=== PATIENT | female | born 1945 | race Hispanic/Latino ===

== ENCOUNTER 2017-07-22 17:24 | Emergency (ER) | payer MEDICARE ==
[2017-07-22 17:28] VITALS: BMI 27.4
[2017-07-22] MEDS ORDERED: Alum-Mag Hydrox-Simethicone Susp (30 mL) PO STA (17:50)
--- NOTE | 2017-07-22 17:54 | C.PDOC ---
History Of Present Illness <Rudy Wilkins - Last Filed: 07/22/17 18:58> <Nellie Lugo - Last Filed: 07/22/17 19:43> 72 y/o F c PMHx HTN, HLD, tremor p/w thoracic pain x 2 days. 2 days ago, patient states she tripped over a parking block. She denies LOC but did vomit twice. She now complains of pain on both sides of her thorax, mostly on the L lower chest. She denies abdominal pain, further vomiting, bleeding, shortness of breath, extremity pain. (Rudy Wilkins) <Rudy Wilkins - Last Filed: 07/22/17 18:58> <Nellie Lugo - Last Filed: 07/22/17 19:43> Time Seen by Provider: 07/22/17 17:39 Chief Complaint (Nursing): Chest Pain Past Medical History - Medical History PMH: Anxiety, Back Problems, Depression, Diabetes, HTN, Hypercholesterolemia, Hyperlipidemia Denies: HIV, Seizures, Sexually Transmitted Disease Surgical History: Family History: States: Unknown Family Hx - Social History Hx Tobacco Use: No Hx Alcohol Use: No Hx Substance Use: No - Immunization History Hx Tetanus Toxoid Vaccination: No Hx Influenza Vaccination: No Hx Pneumococcal Vaccination: No <Rudy Wilkins - Last Filed: 07/22/17 18:58> Review Of Systems Except As Marked, All Systems Reviewed And Found Negative. Constitutional: Negative for: Fever Respiratory: Negative for: Shortness of Breath <Rudy Wilkins - Last Filed: 07/22/17 18:58> Physical Exam <Rudy Wilkins - Last Filed: 07/22/17 18:58> <Nellie Lugo - Last Filed: 07/22/17 19:43> - Physical Exam Additional Physical Exam Comments: Constitutional: No acute distress. Head: Normocephalic. Atraumatic. Eyes: PERRL. ENT: Moist mucous membranes. Neck: Supple. No midline tenderness. Cardiovascular: Regular rate. Radial pulse 2+ bilaterally. Chest: No tenderness. Bilateral rib tenderness. Respiratory: Clear to auscultation bilaterally. GI: Soft. Nontender. Nondistended. Back: No CVA tenderness. No midline tenderness. Musculoskeletal: No tenderness or swelling of extremities. FROM x4. Pelvis stable. Skin: No rash. Left lower chest ecchymosis. Neurologic: Alert, no focal deficit. (Rudy Wilkins) ED Course And Treatment O2 Sat by Pulse Oximetry: 95 (on RA) Pulse Ox Interpretation: Normal <Rudy Wilkins - Last Filed: 07/22/17 18:58> Pulse Ox Interpretation: Normal Reevaluation Time: 19:41 Reassessment Condition: Improved <SapjeffValdi - Last Filed: 07/22/17 19:43> Medical Decision Making <Rudy Wilkins - Last Filed: 07/22/17 18:58> <SapiraValdi - Last Filed: 07/22/17 19:43> Medical Decision Making: Morphine for pain, patient also requested Maalox. Will send for imaging to rule out fracture, pneumothorax, hemothorax, intracranial hemorrhage. FINDINGS: HEMORRHAGE: No intracranial hemorrhage. BRAIN: Diffuse atrophy with prominence of the ventricles and sulci noted. No mass effect or edema. Right parietal encephalomalacia. 10 x 3 mm hypodensity in the region of the right basal ganglia consistent with chronic ischemia. Scattered white matter hypodensities, which are nonspecific, but often seen with chronic microvascular ischemic disease. Please note that MRI with diffusion imaging is more sensitive in the detection of acute ischemic event.Please note that MRI with diffusion imaging is more sensitive in the detection of acute ischemic event. VENTRICLES: No hydrocephalus. CALVARIUM: Unremarkable. PARANASAL SINUSES: Unremarkable as visualized. No significant inflammatory changes. MASTOID AIR CELLS: Unremarkable as visualized. No inflammatory changes. OTHER FINDINGS: Probable subluxation of the left temporomandibular joint. IMPRESSION: Right parietal encephalomalacia. 10 x 3 mm hypodensity in the region of the right basal ganglia consistent with chronic ischemia. Scattered nonspecific white matter changes. Generalized atrophy. Probable subluxation of the left temporomandibular joint. Correlate clinically. Pending CT Chest. Will sign out to ED night team. (Rudy Wilkins) Disposition - Disposition Disposition Time: 18:47 <Rudy Wilkins - Last Filed: 07/22/17 18:58> Counseled Patient/Family Regarding: Studies Performed, Diagnosis, Need For Followup, Rx Given <ParishValdi - Last Filed: 07/22/17 19:43> - Disposition Referrals: [facility] [Outside] Ambulatory Care Service [Outside] Disposition: HOME/ ROUTINE Condition: FAIR Additional Instructions: Please return if symptoms recur Prescriptions: traMADol [Ultram] 50 mg PO Q8H #12 tab Instructions: Costochondritis (ED), Contusion in Adults (DC) Forms: [employer] (Slovak) - Clinical Impression Clinical Impression: Rib injury, Chest wall contusion - Scribe Statement The provider has reviewed the documentation as recorded by the Scribe <Rudy Wilkins - Last Filed: 07/22/17 18:58> <Nellie Lugo - Last Filed: 07/22/17 19:43> - Scribe Statement Charity Patel All medical record entries made by the Scribe were at my direction and personally dictated by me. I have reviewed the chart and agree that the record accurately reflects my personal performance of the history, physical exam, medical decision making, and the department course for this patient. I have also personally directed, reviewed, and agree with the discharge instructions and disposition. (Rudy Wilkins)
[2017-07-22] MEDS ORDERED: Aluminum Hydroxide/Magnesium Hydroxide Susp (30 mL) ONE (18:03)
[2017-07-22] MEDS ORDERED: Morphine 4 MG/ML VIAL ONE (18:03)
--- NOTE | 2017-07-22 18:41 | CT ---
PROCEDURE: CT HEAD WITHOUT CONTRAST. HISTORY: fall, vomiting COMPARISON: Noncontrast head CT performed 08/18/14 TECHNIQUE: Axial computed tomography images were obtained through the head/brain without intravenous contrast. Radiation dose: Total exam DLP = 937.10 mGy-cm. This CT exam was performed using one or more of the following dose reduction techniques: Automated exposure control, adjustment of the mA and/or kV according to patient size, and/or use of iterative reconstruction technique. FINDINGS: HEMORRHAGE: No intracranial hemorrhage. BRAIN: Diffuse atrophy with prominence of the ventricles and sulci noted. No mass effect or edema. Right parietal encephalomalacia. 10 x 3 mm hypodensity in the region of the right basal ganglia consistent with chronic ischemia. Scattered white matter hypodensities, which are nonspecific, but often seen with chronic microvascular ischemic disease. Please note that MRI with diffusion imaging is more sensitive in the detection of acute ischemic event.Please note that MRI with diffusion imaging is more sensitive in the detection of acute ischemic event. VENTRICLES: No hydrocephalus. CALVARIUM: Unremarkable. PARANASAL SINUSES: Unremarkable as visualized. No significant inflammatory changes. MASTOID AIR CELLS: Unremarkable as visualized. No inflammatory changes. OTHER FINDINGS: Probable subluxation of the left temporomandibular joint. IMPRESSION: Right parietal encephalomalacia. 10 x 3 mm hypodensity in the region of the right basal ganglia consistent with chronic ischemia. Scattered nonspecific white matter changes. Generalized atrophy. Probable subluxation of the left temporomandibular joint. Correlate clinically.
--- NOTE | 2017-07-22 19:01 | CT ---
CT chest without IV contrast Indication: Fall, thoracic pain Technique: Contiguous axial images were obtained through the chest without intravenous contrast enhancement. Sagittal and coronal reconstructions were generated and reviewed. This CT exam was performed using 1 or more of the falling dose reduction techniques: Automated exposure control, adjustment of the MAA and/or kV according to patient size, and/or use of iterative reconstruction technique. Radiation dose (DLP): 806.29 MGy-cm. Comparison: Chest x-ray performed 07/22/16 Findings: Visualized portions of the inferior thyroid gland appear unremarkable. The the unenhanced mediastinal and hilar vascular structures appear grossly unremarkable. The heart appears within normal limits of size. No focal consolidation. No pleural effusion. No pneumothorax. No suspicious pulmonary nodules measuring greater than 5 mm. Moderate to large hiatal hernia. Limited visualization of the noncontrast upper abdomen demonstrates 3.4 x 2.9 cm parapelvic cyst. Partially imaged deformity of the right iliac bone. Kyphosis. Multilevel degenerative changes. Impression: No acute displaced fracture identified. Partially imaged deformity of the right iliac bone. Considerations include remote fracture deformity however bone lesion cannot be excluded. Correlate clinically. Consider dedicated imaging and horn nuclear medicine bone scan if indicated. Moderate to large hiatal hernia. Additional findings as above.
[2017-07-22 20:06] VITALS: BP 151/83; PULSE 74; RESP 18; TEMP 98.1; O2SAT 94
--- NOTE | 2017-07-23 12:30 | CARD ---
APPROVED REPORT EKG Measurement Heart [id number] [id number] <Conclusion> Normal sinus rhythm Left axis deviation Abnormal ECG
== END 2017-07-22 20:06 | disposition home or self-care (01) ==
LOC: C.ER 17:24
DX: S20.212A Contusion of left front wall of thorax, initial encounter (principal); W01.0XXA Fall on same level from slipping, tripping and stumbling without subsequent striking against object, initial encounter
CPT/HCPCS: 70450; 71250; 93005; 96372; 99285; J2270

== ENCOUNTER 2017-12-29 07:19 | Emergency (ER) | payer MEDICARE ==
[2017-12-29 07:20] VITALS: BMI 29.2
[2017-12-29 07:58] VITALS: TEMP 98.6; O2SAT 96
--- NOTE | 2017-12-29 09:29 | C.PDOC ---
History Of Present Illness 72-year-old female, PMHx includes Parkinsons disease, presents to the emergency department with complaints of headache and pain to left side of body. Patient states she was walking down the stairs this morning when she tripped & fell forward, hitting her head and left side of body on the stairs/floor. Patient is complaining of left sided rib and knee pain. She also is complaining of mild dizziness/light headedness. Patient denies LOC, sensory changes, visual changes , nausea/vomiting, chest pain, shortness of breath, abdominal pain. - HPI Time Seen by Provider: 12/29/17 07:48 Chief Complaint (Nursing): Trauma History Per: Patient History/Exam Limitations: no limitations Onset/Duration Of Symptoms: Hrs Severity: Mild Past Medical History Reviewed: Historical Data, Nursing Documentation, Vital Signs Vital Signs: Last Vital Signs Temp 98.6 F 12/29/17 07:45 Pulse 82 12/29/17 09:56 Resp 16 12/29/17 09:56 BP 104/64 12/29/17 09:56 Pulse Ox 96 12/29/17 09:56 - Medical History PMH: Anxiety, Back Problems, Depression, Diabetes, HTN, Hypercholesterolemia, Hyperlipidemia Surgical History: - [facility] Procedures CLOSED BIOPSY OF SKIN AND SUBCUTANEOUS TISSUE (12/04/14) INJECT/INFUSE NEC (11/24/05) Family History: States: No Known Family Hx - Social History Hx Tobacco Use: No Hx Alcohol Use: No Hx Substance Use: No - Immunization History Hx Tetanus Toxoid Vaccination: No Hx Influenza Vaccination: No Hx Pneumococcal Vaccination: No Review Of Systems Except As Marked, All Systems Reviewed And Found Negative. Cardiovascular: Positive for: Chest Pain (left ribs). Negative for: Palpitations Respiratory: Negative for: Cough, Shortness of Breath Gastrointestinal: Negative for: Vomiting, Abdominal Pain, Diarrhea Musculoskeletal: Positive for: Other (knee pain, left). Negative for: Neck Pain Skin: Negative for: Rash Neurological: Positive for: Headache. Negative for: Weakness, Numbness, Altered Mental Status Physical Exam - Physical Exam Appears: Well, Non-toxic, No Acute Distress Skin: Warm, Dry, No Rash Head: Atraumatic, Normacephalic Eye(s): bilateral: Normal Inspection, PERRL, EOMI Nose: Normal, No Deformity, No Tenderness Oral Mucosa: Moist Neck: Normal, Normal ROM, No Midline Cervical Tenderness, No Paracervical Tenderness, No Step Off Deformity, Supple Chest: Other (left lateral rib TTP at approx ribs 5-6 level) Cardiovascular: Rhythm Regular Respiratory: Normal Breath Sounds, No Rales, No Rhonchi, No Wheezing Gastrointestinal/Abdominal: Normal Exam, Bowel Sounds, Soft, No Tenderness Extremity: Normal ROM, No Tenderness, No Deformity, No Swelling, Other ( echymosis to left proximal tibial area) Neurological/Psych: Oriented x3 ED Course And Treatment O2 Sat by Pulse Oximetry: 96 (RA) Pulse Ox Interpretation: Normal Progress Note: Xrays of B/L knees and Chest/rib series ordered and reviewed. Patient given PO tylenol. Reevaluation Time: 09:50 Reassessment Condition: Improved (On reassessment, patient is resting comfortably and states pain has improved. Xrays negative for acute bony injury. Patient reassured and instructed to follow up with PMD in 1-2 days. She understands she should return to ED if symptoms worsen.) Disposition Counseled Patient/Family Regarding: Diagnosis, Need For Followup, Rx Given - Disposition Referrals: Isauro Scanlon III, MD [Staff Provider] - Bert Matias MD [Medical Doctor] - Disposition: HOME/ ROUTINE Disposition Time: 09:55 Condition: STABLE Additional Instructions: FOLLOW UP WITH YOUR DOCTOR IN 1-2 DAYS IF PAIN PERSISTS, FOLLOW UP WITH ORTHOPEDICS WITHIN 1 WEEK RETURN TO ER IF SYMPTOMS WORSEN Prescriptions: Acetaminophen [Tylenol 325mg tab] 650 mg PO Q6 PRN #30 tab PRN Reason: pain/fever Instructions: Knee Sprain (ED), Rib Contusion (ED) Forms: [employer] (Israeli) Print Language: PUERTO RICAN - POA Present On Arrival: Falls Or Trauma - Clinical Impression Clinical Impression: Knee sprain, Contusion of rib on left side - Scribe Statement The provider has reviewed the documentation as recorded by the Scribe (Ben Don) All medical record entries made by the Scribe were at my direction and personally dictated by me. I have reviewed the chart and agree that the record accurately reflects my personal performance of the history, physical exam, medical decision making, and the department course for this patient. I have also personally directed, reviewed, and agree with the discharge instructions and disposition.
--- NOTE | 2017-12-29 09:51 | RAD ---
PROCEDURE: Radiographs of the chest and bilateral ribs HISTORY: B/L rib pain after fall COMPARISON: CT chest dated 07/22/2017 TECHNIQUE: Frontal radiograph of the chest and multiple oblique radiographs of the bilateral ribs were obtained. FINDINGS: RIGHT RIBS: No fracture or focal lesion visualized. LEFT RIBS: No fracture or focal lesion visualized. LUNGS: Clear. PLEURA: Stable mild elevation of the right hemidiaphragm. No pneumothorax or pleural fluid. CARDIOVASCULAR: Atherosclerotic aortic calcifications. Cardiomediastinal silhouette within normal limits. OTHER FINDINGS: None. IMPRESSION: Unremarkable radiographs of the chest and bilateral ribs. No rib fracture.
--- NOTE | 2017-12-29 09:52 | RAD ---
PROCEDURE: Bilateral Knee Radiographs. HISTORY: B/L knee pain after fall COMPARISON: None. FINDINGS: BONES: Right Knee: No acute fracture. Left Knee: No acute fracture. JOINTS: Right Knee: Tricompartmental narrowing with trace degenerative spurring. Left knee: Tricompartmental narrowing with trace degenerative spurring. SOFT TISSUES: Right Knee: Normal. Left Knee: Normal. JOINT EFFUSION: Right Knee: None. Left Knee: None. OTHER FINDINGS: Bilateral quadriceps tendon enthesophyte. IMPRESSION: No demonstrated fracture or dislocation. Mild degenerative changes.
[2017-12-29 09:56] VITALS: BP 104/64; PULSE 82; RESP 16
== END 2017-12-29 09:56 | disposition home or self-care (01) ==
LOC: C.ER 07:19
DX: S20.212A Contusion of left front wall of thorax, initial encounter (principal); S83.90XA Sprain of unspecified site of unspecified knee, initial encounter; W10.9XXA Fall (on) (from) unspecified stairs and steps, initial encounter; E11.9 Type 2 diabetes mellitus without complications; E78.00 Pure hypercholesterolemia, unspecified; I10 Essential (primary) hypertension; E78.5 Hyperlipidemia, unspecified; G20 Parkinson's disease

== ENCOUNTER 2018-09-28 10:23 | Observation (INO) | payer MEDICARE ==
[2018-09-28 10:24] VITALS: BMI 29.2
[2018-09-28] MEDS ORDERED: Azithromycin 500mg/250ML NS 500 MG/250 ML BAG IV STA (10:50)
[2018-09-28] MEDS ORDERED: cefTRIAXone IV 1 gm in Dextros 50 ML IV STA (10:50)
[2018-09-28] MEDS ORDERED: Sodium Chloride 0.9% 1,000 ML IV ONE (10:50)
--- NOTE | 2018-09-28 10:50 | C.PDOC ---
History Of Present Illness 73 year old female presents to the ED for evaluation of a productive cough, nasal congestion, fever (100.0), vomiting and headaches associated with generalized body weakness that began last night. Patient reports prior visit to PMD x2 weeks ago for similar symptoms who treated and prescribed her cough medication with improvement. She notes the symptoms returned after going outside without a coat. Received pneumonia vaccine. Denies flu vaccine, abdominal pain, chills, diarrhea, and any other associated symptoms. Time Seen by Provider: 09/28/18 10:29 History Per: Patient History/Exam Limitations: no limitations Onset/Duration Of Symptoms: Hrs Current Symptoms Are (Timing): Still Present Past Medical History Reviewed: Historical Data, Nursing Documentation, Vital Signs Vital Signs: Last Vital Signs Temp 100 F H 09/28/18 10:25 Pulse 94 H 09/28/18 10:25 Resp 19 09/28/18 10:40 BP 114/74 09/28/18 10:25 Pulse Ox 93 L 09/28/18 10:40 - Medical History PMH: Anxiety, Back Problems, Depression, Diabetes, HTN, Hypercholesterolemia, Hyperlipidemia Denies: HIV, Seizures, Sexually Transmitted Disease Surgical History: - [facility] Procedures CLOSED BIOPSY OF SKIN AND SUBCUTANEOUS TISSUE (12/04/14) INJECT/INFUSE NEC (11/24/05) Family History: States: Unknown Family Hx - Social History Hx Tobacco Use: No Hx Alcohol Use: No Hx Substance Use: No - Immunization History Hx Tetanus Toxoid Vaccination: No Hx Influenza Vaccination: No Hx Pneumococcal Vaccination: No Review Of Systems Except As Marked, All Systems Reviewed And Found Negative. Constitutional: Positive for: Fever (100.0), Other (generalized body weakness.). Negative for: Chills ENT: Positive for: Nose Congestion Respiratory: Positive for: Cough (productive.) Gastrointestinal: Positive for: Vomiting. Negative for: Abdominal Pain, Diarrhea Neurological: Positive for: Headache Physical Exam - Physical Exam Appears: Non-toxic, Other (generalized weakness.) Skin: Normal Color, Warm, Dry Head: Atraumatic, Normacephalic Eye(s): bilateral: Normal Inspection Nose: Normal, No Discharge Oral Mucosa: Moist Neck: Normal ROM, Supple Chest: Symmetrical, No Deformity Cardiovascular: Rhythm Regular, No Murmur Respiratory: Normal Breath Sounds, No Rales, No Rhonchi, No Wheezing, Other (NARD.) Extremity: Normal ROM (to the knees bilaterally. ), No Tenderness (to the knees bilaterally. ), Capillary Refill (less than 2 seconds. ), No Deformity, No Swelling (to the knees bilaterally. ) Neurological/Psych: Oriented x3, Normal Speech ED Course And Treatment - Laboratory Results Result Diagrams: 09/28/18 11:06 09/28/18 11:06 ECG: Interpreted By Me ECG Rhythm: Sinus Rhythm ECG Interpretation: Normal Rate From EC O2 Sat by Pulse Oximetry: 93 (nasal cannula) Pulse Ox Interpretation: Abnormal - Radiology CXR: Interpreted by Me CXR Interpretation: Yes: Infiltrates (?INTERSTIT) - Other Rad CXR X-Ray: Interpreted by Me, Viewed By Me, Read By Radiologist Interpretation: FINDINGS: LUNGS: There are low lung volumes. The lungs are well inflated and clear. PLEURA: No pneumothorax or pleural effusion. CARDIOVASCULAR: The heart is normal in size. No aortic atherosclerotic calcifications present. OSSEOUS STRUCTURES: Within normal limits for the patient's age. VISUALIZED UPPER ABDOMEN: Normal. OTHER FINDINGS: None. IMPRESSION: No acute findings. Progress - Re-Evaluation Re-evaluation Note: 09/28/18 12:03 NO ECHO REPORT IN PAST 2 YRS, UNK EF. WILL DEFER SEPSIS IV BOLUS PER PROTOCOL 09/28/18 12:34 D/W DR JERALD BARAJAS M[employer]ER WILL ADMIT - Data Reviewed Data Reviewed: Lab, Diagnostic imaging, EKG, Old records Medical Decision Making Medical Decision Making: Plan: -EKG -CXR -Nasal cannula -Blood sent -Blood culture -Urine culture -Urinalysis -Influenza A B -Tylenol -Toradol -Azithromycin -Ceftriaxone Disposition Counseled Patient/Family Regarding: Studies Performed, Diagnosis - Disposition Disposition: HOSPITALIZED Disposition Time: 12:34 Condition: SERIOUS - POA Present On Arrival: Poor Glycemic Control - Clinical Impression Clinical Impression: Pneumonia, Weakness generalized - Scribe Statement The provider has reviewed the documentation as recorded by the Scribe (Karuna Montes De Oca) Provider Attestation: All medical record entries made by the Scribe were at my direction and personally dictated by me. I have reviewed the chart and agree that the record accurately reflects my personal performance of the history, physical exam, medical decision making, and the department course for this patient. I have also personally directed, reviewed, and agree with the discharge instructions and disposition.
[2018-09-28] MEDS ORDERED: Sodium Chloride 0.9% 1,000 ML ONE (11:07)
[2018-09-28] MEDS ORDERED: cefTRIAXone 1 gm 0 GM/0 ML BAG IVPB ONE (11:09)
[2018-09-28 11:10] LABS: BASO # 0.2 K/uL (0.0-0.2); EOS # 0.1 K/uL (0.0-0.7); EOS % 0.4 % (0.0-4.0); LYMPH # 1.2 K/uL (1.0-4.3); MEAN CORPUSCULAR HEMOGLOBIN 25.5 pg (27.0-31.0); MEAN PLATELET VOLUME 7.7 fL (7.2-11.7); MONO # 0.7 K/uL (0.0-0.8); MONO % 3.5 % (0.0-10.0); NEUT # 17.3 K/uL (1.8-7.0); NEUT % 89.1 % (50.0-75.0); PLATELET COUNT 368 K/uL (130-400); RBC 3.84 Mil/uL (3.80-5.20); RED CELL DISTRIBUTION WIDTH 16.3 % (11.5-14.5)
[2018-09-28 11:23] LABS: HEMOGLOBIN 9.8 g/dL (11.0-16.0); MEAN CELL VOLUME 79.7 fL (81.0-99.0); WHITE BLOOD COUNT 19.4 K/uL (4.8-10.8)
[2018-09-28] MEDS ORDERED: cefTRIAXone 1 gm 1 GM/100 ML BAG IVPB ONE (11:26)
[2018-09-28 11:51] LABS: ANISOCYTOSIS SLIGHT; BANDS 4 % (0-2); LYMPHOCYTE 8 % (20-40); MONOCYTE 5 % (0-10); NEUTROPHIL 83 % (50-75); PLATELET ESTIMATE NORMAL (NORMAL); TOTAL CELLS COUNTED 100
[2018-09-28 11:52] LABS: HYPOCHROMIC SLIGHT
[2018-09-28] MEDS ORDERED: Azithromycin 500mg/250ML NS 500 MG/250 ML BAG IVPB ONE (11:52)
--- NOTE | 2018-09-28 11:53 | RAD ---
Date of service: 09/28/2018 PROCEDURE: CHEST RADIOGRAPH, 1 VIEW HISTORY: Pneumonia COMPARISON: CT chest without contrast from 07/22/2017. FINDINGS: LUNGS: There are low lung volumes. The lungs are well inflated and clear. PLEURA: No pneumothorax or pleural effusion. CARDIOVASCULAR: The heart is normal in size. No aortic atherosclerotic calcifications present. OSSEOUS STRUCTURES: Within normal limits for the patient's age. VISUALIZED UPPER ABDOMEN: Normal. OTHER FINDINGS: None. IMPRESSION: No acute findings.
[2018-09-28] MEDS ORDERED: Sodium Chloride 0.9% 500 ML IV ONE (12:03)
[2018-09-28 12:05] LABS: ALB/GLOB RATIO 1.2 (1.0-2.1); ALBUMIN 3.8 g/dL (3.5-5.0); BLOOD UREA NITROGEN 32 mg/dL (7-17); CALCIUM 9.4 mg/dl (8.6-10.4); GFR NON-AFRICAN AMERICAN 55
[2018-09-28 12:12] LABS: ALT/SGPT 14 U/L (9-52); AST/SGOT 55 U/L (14-36)
[2018-09-28 12:20] LABS: VENOUS BLOOD GAS BASE EXCESS -0.2 mmol/L (0.0-2.0); VENOUS BLOOD GAS PCO2 41 mmHg (40-60); VENOUS BLOOD GAS PO2 48 mm/Hg (30-55); VENOUS BLOOD PH 7.39 (7.32-7.43)
[2018-09-28 12:28] LABS: INR 1.1; PROTHROMBIN TIME 12.5 SECONDS (9.7-12.2)
--- NOTE | 2018-09-28 13:56 | CP.PCM.HP ---
History of Present Illness - History of Present Illness History of Present Illness: COMPREHENSIVE HISTORY & PHYSICAL EXAM HPI Patient is admitted from emergency room complaining of cough expectoration with evolving pneumonia. Patient for the last few days has been complaining of cough expectoration with upper respiratory congestion with loss of appetite. Patient was evaluated in the ER blood test shows WBC count of 19,000 and chest x-ray did not reveal any definite infiltrate. PAST HIST. History of hypertension and depression PERSONAL HIST: Smoking. N Alcohol. N Allergy N Travel_- . FAMILY HIST : ROS : Constitutional: Negative for weight change, chills, night sweats, fatigue and usage of assist device. Eyes: Negative for redness, swelling, itching, discharge, vision changes, blurry vision, double vision, glaucoma, cataracts, Ears: Negative for hearing loss, ringing, , tinnitus, vertigo Nose: Negative for rhinorrhea, stuffiness, sniffing, itching, postnasal drip, discoloration, nasal congestion and epistaxis. Throat: Negative for throat clearing, sore throat, hoarseness, difficulty swallowing and difficulty speaking. Respiratory: Negative, hemoptysis, snoring at night, Cardiovascular: Negative for chest pain, palpitations, orthopnea, PND, Edema of legs, leg cramps, angina, claudication, , irregular heartbeat, Neurology: Negative for irritability, muscle weakness, numbness and tingling, seizures, tremors, migraines, slurred speech, syncope, memory loss, mood changes, recurrent headaches Gastrointestinal: Negative for difficulty swallowing, diarrhea, constipation, black stools, rectal bleeding, nausea, flatulence, reflux, poor appetite, changes in bowel habits, abdominal pain Genitourinary: Negative for frequent urination, hematuria, discharge, incontinence, urinary retention, frequent UTI, Psychiatric: Negative for depression, anxiety/panic, suicidal tendencies, Musculoskeletal: Negative for swollen joints, back pain, , neck pain, morning stiffness of joints, . Skin: Negative for rash, ulcers, itching, dry skin and pigmented lesions. P/E: Constitutional: Appears stated age and in no apparent distress. Head: Normocephalic. Ears: External ear canals patent without inflammation. Tympanic membranes intact with normal light reflex and landmark. Eyes: Pupils are central, bilaterally equal, symmetrical and reacts to light with normal movements and no icterus or pallor. Nose: External nares are patent. Mucosa is pink Mouth-Throat: Good general appearance and condition. No post-pharyngeal/oropharyngeal erythema and tonsillar hypertrophy. Good dental hygiene. Neck-Lymphatic: Neck is supple with normal ROM, no thyromegaly, lymph nodes or masses. JVD is normal with no carotid bruit. Lungs: Clear to percussion and auscultation with bilateral normal air entry. Bilateral basal crackles Cardiovascular: S1 and S2 are normal with no murmurs, gallops and rub. GI Exam: No hepatomegaly. Abdomen is soft and non-tender. No Organomegaly , masses or hernias are evident and bowel sounds are normal and active. Neurology: Higher function and all cranial nerves intact, with no gross motor or sensory deficit. Superficial and deep reflexes are normal with downwards planters. No cerebellar deficit with normal gait. Musculoskeletal: No tender spots with normal curvature of the spine with no swelling or restricted ROM of the small and large joints. Extremities: Homans sign absent. Intact pulses with no pitting edema, calf tenderness or skin color changes. Skin: No rash, eruptions or abnormal skin pigmentation LAB/RADIOLOGY: ASSESMENT : Evolving pulmonary pneumonia with systemic inflammatory response. Hypertension PLAN: IV antibiotics and IV hydration. Present on Admission - Present on Admission Any Indicators Present on Admission: No Past Patient History - Past Medical History & Family History Past Medical History?: Yes - Past Social History Smoking Status: Never Smoked - CARDIAC Hx Hypercholesterolemia: Yes Hx Hypertension: Yes - NEUROLOGICAL Hx Seizures: No - ENDOCRINE/METABOLIC Hx Endocrine Disorders: Yes Hx Diabetes Mellitus Type 2: Yes - HEMATOLOGICAL/ONCOLOGICAL Hx Human Immunodeficiency Virus (HIV): No - MUSCULOSKELETAL/RHEUMATOLOGICAL Hx Musculoskeletal Disorders: Yes - GASTROINTESTINAL Hx Gastroesophageal Reflux: No - GENITOURINARY/GYNECOLOGICAL Hx Sexually Transmitted Disorders: No - PSYCHIATRIC Hx Anxiety: Yes Hx Depression: Yes Hx Substance Use: No - SURGICAL HISTORY Hx Surgeries: Yes Hx Cardiac Catheterization: Yes Hx Tubal Ligation: Yes - ANESTHESIA Hx Anesthesia: Yes Hx Anesthesia Reactions: No Hx Malignant Hyperthermia: No Meds Allergies/Adverse Reactions: Allergies Allergy/AdvReac Type Severity Reaction Status Date / Time No Known Allergies Allergy Verified 09/28/18 10:34 Results - Vital Signs Recent Vital Signs: Last Vital Signs Temp 98.9 F 09/28/18 13:44 Pulse 82 09/28/18 12:25 Resp 14 09/28/18 12:25 BP 110/56 L 09/28/18 12:25 Pulse Ox 93 L 09/28/18 13:16 - Labs Result Diagrams: 09/28/18 11:06 09/28/18 11:06 Labs: Laboratory Results - last 24 hr 09/28/18 09/28/18 09/28/18 11:06 11:06 11:06 WBC 19.4 H D RBC 3.84 Hgb 9.8 L D Hct 30.6 L MCV 79.7 L D MCH 25.5 L MCHC 32.0 L RDW 16.3 H Plt Count 368 MPV 7.7 Neut % (Auto) 89.1 H Lymph % (Auto) 6.0 L [place] % (Auto) 3.5 Eos % (Auto) 0.4 Baso % (Auto) 1.0 Neut # (Auto) 17.3 H Lymph # (Auto) 1.2 [place] # (Auto) 0.7 Eos # (Auto) 0.1 Baso # (Auto) 0.2 Neutrophils % (Manual) 83 H Band Neutrophils % 4 H Lymphocytes % (Manual) 8 L Monocytes % (Manual) 5 Platelet Estimate Normal Hypochromasia (manual) Slight Anisocytosis (manual) Slight PT INR APTT pO2 VBG pH VBG pCO2 VBG HCO3 VBG Total CO2 VBG O2 Sat (Calc) VBG Base Excess VBG Potassium Glucose Lactate Sodium 137 Potassium 4.6 Chloride 103 Carbon Dioxide 22 Anion Gap 15 BUN 32 H Creatinine 1.0 Est GFR ( Amer) > 60 Est GFR (Non-Af Amer) 55 Random Glucose 114 H Calcium 9.4 Total Bilirubin 0.6 AST 55 H ALT 14 Alkaline Phosphatase 54 Total Protein 6.9 Albumin 3.8 Globulin 3.1 Albumin/Globulin Ratio 1.2 Venous Blood Potassium Influenza Typ A,B (EIA) Negative for flu a/b 09/28/18 09/28/18 12:08 12:10 WBC RBC Hgb Hct MCV MCH MCHC RDW Plt Count MPV Neut % (Auto) Lymph % (Auto) [place] % (Auto) Eos % (Auto) Baso % (Auto) Neut # (Auto) Lymph # (Auto) [place] # (Auto) Eos # (Auto) Baso # (Auto) Neutrophils % (Manual) Band Neutrophils % Lymphocytes % (Manual) Monocytes % (Manual) Platelet Estimate Hypochromasia (manual) Anisocytosis (manual) PT 12.5 H INR 1.1 APTT 33 pO2 48 VBG pH 7.39 VBG pCO2 41 VBG HCO3 24.4 VBG Total CO2 26.1 VBG O2 Sat (Calc) 85.8 H VBG Base Excess -0.2 L VBG Potassium 3.9 Glucose 109 H Lactate 0.9 Sodium 136.0 Potassium Chloride 105.0 Carbon Dioxide Anion Gap BUN Creatinine Est GFR ( Amer) Est GFR (Non-Af Amer) Random Glucose Calcium Total Bilirubin AST ALT Alkaline Phosphatase Total Protein Albumin Globulin Albumin/Globulin Ratio Venous Blood Potassium 3.9 Influenza Typ A,B (EIA)
[2018-09-28 14:04] LABS: URINE BILIRUBIN NEGATIVE (NEGATIVE); URINE BLOOD NEGATIVE (NEGATIVE); URINE CLARITY Clear (Clear); URINE COLOR Straw (YELLOW); URINE GLUCOSE (UA) NORMAL (Normal); URINE LEUKOCYTE ESTERASE NEG Leu/uL (Negative); URINE PROTEIN NEGATIVE (NEGATIVE); URINE UROBILINOGEN NORMAL mg/dL (0.2-1.0)
[2018-09-28] MEDS: Sodium Chloride 0.45% 1,000 ML IV SCH (14:40)
--- NOTE | 2018-09-28 17:39 | RAD ---
PROCEDURE: Radiographs of the paranasal sinuses INDICATION: Sinusitis COMPARISON: None. FINDINGS: Upright Spence, Velez and lateral views of the paranasal sinuses were obtained. The right maxillary sinus is hypoplastic with severe osteopenia a neetu. The left maxillary sinus, sphenoid and the frontal sinuses are well aerated. The nasal septum is deviated to the right. IMPRESSION: Chronic right maxillary sinusitis. Nasal septum deviated to the right.
--- NOTE | 2018-09-28 17:41 | RAD ---
Date of service: For at the for the 09/28/2018 PROCEDURE: Left Knee Radiographs. HISTORY: Pain. COMPARISON: None. FINDINGS: BONES: Bone alignment is normal. There is periarticular bone demineralization. There is no acute displaced fracture or bone destruction. JOINTS: There is moderate tricompartmental degenerative osteoarthrosis with reduced joint spaces, marginal osteophytes and tibial spiking, worse in the media compartment. JOINT EFFUSION: There is a small suprapatellar joint effusion. OTHER FINDINGS: There are atherosclerotic vascular calcifications. IMPRESSION: No acute fracture or dislocation. Moderate tricompartmental degenerative osteoarthrosis, worse in the medial compartment. Small suprapatellar joint effusion.
[2018-09-29] MEDS: Sodium Chloride 0.45% 1,000 ML IV SCH ×2 (03:50→14:56)
[2018-09-29 07:32] LABS: HEMOGLOBIN 9.3 g/dL (11.0-16.0); MEAN CELL VOLUME 80.5 fL (81.0-99.0); MEAN CORPUSCULAR HEMOGLOBIN 25.9 pg (27.0-31.0); MEAN CORPUSCULAR HGB CONC 32.2 g/dL (33.0-37.0); RBC 3.58 Mil/uL (3.80-5.20); RED CELL DISTRIBUTION WIDTH 15.7 % (11.5-14.5)
[2018-09-29 07:33] LABS: BASO # 0.1 K/uL (0.0-0.2); BASO % 0.8 % (0.0-2.0); EOS # 0.3 K/uL (0.0-0.7); EOS % 3.1 % (0.0-4.0); MEAN PLATELET VOLUME 7.8 fL (7.2-11.7); MONO # 0.6 K/uL (0.0-0.8); MONO % 5.9 % (0.0-10.0); NEUT # 7.9 K/uL (1.8-7.0); NEUT % 72.2 % (50.0-75.0)
[2018-09-29 08:39] LABS: ALB/GLOB RATIO 1.2 (1.0-2.1); ALBUMIN 3.5 g/dL (3.5-5.0); ALT/SGPT 32 U/L (9-52); AST/SGOT 28 U/L (14-36); BLOOD UREA NITROGEN 21 mg/dL (7-17); CALCIUM 8.2 mg/dl (8.6-10.4); GFR NON-AFRICAN AMERICAN > 60
[2018-09-29] MEDS: Venlafaxine 150 mg ER Cap PO SCH (09:35)
--- NOTE | 2018-09-29 12:05 | CARD ---
APPROVED REPORT Date of service: 09/28/2018 EKG Measurement Heart [id number] <Conclusion> Normal sinus rhythm Left axis deviation Abnormal ECG
--- NOTE | 2018-09-29 13:56 | CP.PCM.PN ---
Subjective - Date & Time of Evaluation Date of Evaluation: 09/29/18 Time of Evaluation: 13:54 - Subjective Subjective: CHIEF COMPLAINTS TODAY : Upper respiratory tract congestion with mild cough. No fever ROS. HEENT : N. Resp : No ,pleuritic CP ,or hemoptysis Cardio : No anginal CP, PND, orthopnea, palpitation GI : No abd.pain, n/v ,diarrhea or GI bleeding . DRAFTER GEOPHYSICAL : No headache, vertigo, focal deficit. Musculoskel : No joint swelling , Derm : No rash Psych : Normal affect. Ext : No swelling ,calf pain PE. Pt. is alert awake in no distress. V.S As noted in the chart Head ,ear nose,throat and eyes : Normal. Neck : Supple with normal carotids. Lungs: Clear air entry. Heart : S1 & S2 normal with S4. No murmur. Abd : Soft non tender with normal bowel sounds. Neuro : Moves all ext. with no localized deficit. Ext : No edema with intact pulses.Non tender calves Derm : No rashes or decubitus ulcer. LABS/RADIOLOGY: X-ray of the sinus shows chronic sinusitis. X-ray of the left knee shows osteoarthritis with small effusion ASSESSMENT/PLAN : Continue IV antibiotics and pain management Objective - Vital Signs/Intake and Output Vital Signs (last 24 hours): Temp Pulse Resp BP Pulse Ox 98.4 F 74 20 118/66 96 09/29/18 07:00 09/29/18 07:00 09/29/18 07:00 09/29/18 07:00 09/29/18 07:00 Intake and Output: 09/29/18 09/29/18 11:59 23:59 Intake Total 840 Balance 840 - Medications Medications: Current Medications Amlodipine Besylate (Norvasc) 10 mg PO DAILY [facility] Last Admin: 09/29/18 09:34 Dose: 10 mg Clonazepam (Klonopin) 0.5 mg PO Q12H [facility] Last Admin: 09/29/18 07:42 Dose: 0.5 mg Heparin Sodium (Porcine) (Heparin) 5,000 units SC Q12 [facility] Last Admin: 09/29/18 09:34 Dose: 5,000 units Ceftriaxone Sodium 1 gm/ (Sodium Chloride) 100 mls @ 100 mls/hr IVPB Q24H [facility]; Protocol Last Admin: 09/29/18 10:46 Dose: 100 mls/hr Sodium Chloride (Sodium Chloride 0.45%) 1,000 mls @ 80 mls/hr IV .[id number] [facility] Last Admin: 09/29/18 03:50 Dose: Not Given Ibuprofen (Motrin Tab) 600 mg PO TID [facility] Last Admin: 09/29/18 13:46 Dose: 600 mg Rosuvastatin Calcium (Crestor) 5 mg PO HS [facility] Trazodone HCl (Desyrel) 300 mg PO HS [facility] Venlafaxine HCl (Effexor Xr) 150 mg PO DAILY [facility] Last Admin: 09/29/18 09:35 Dose: 150 mg - Labs Labs: 09/29/18 07:28 09/29/18 07:28 PT 12.5 SECONDS (9.7-12.2) H 09/28/18 12:08 INR 1.1 09/28/18 12:08 APTT 33 SECONDS (21-34) 09/28/18 12:08
[2018-09-30 00:04] VITALS: BP 129/77; PULSE 81; RESP 16; TEMP 97.9; O2SAT 98
[2018-09-30] MEDS: Sodium Chloride 0.45% 1,000 ML IV SCH ×2 (03:30→09:14)
[2018-09-30 06:51] LABS: BASO # 0.1 K/uL (0.0-0.2); BASO % 1.4 % (0.0-2.0); EOS # 0.5 K/uL (0.0-0.7); EOS % 5.8 % (0.0-4.0); LYMPH % 25.7 % (20.0-40.0); MEAN CELL VOLUME 79.8 fL (81.0-99.0); MEAN CORPUSCULAR HEMOGLOBIN 25.5 pg (27.0-31.0); MEAN PLATELET VOLUME 7.6 fL (7.2-11.7); MONO # 0.7 K/uL (0.0-0.8); MONO % 8.9 % (0.0-10.0); NEUT # 4.6 K/uL (1.8-7.0); NEUT % 58.2 % (50.0-75.0); RBC 3.93 Mil/uL (3.80-5.20); RED CELL DISTRIBUTION WIDTH 16.2 % (11.5-14.5); WHITE BLOOD COUNT 7.9 K/uL (4.8-10.8)
[2018-09-30 07:05] LABS: ALB/GLOB RATIO 1.3 (1.0-2.1); ALBUMIN 3.9 g/dL (3.5-5.0); ALT/SGPT 38 U/L (9-52); AST/SGOT 51 U/L (14-36); BLOOD UREA NITROGEN 16 mg/dL (7-17); CALCIUM 8.7 mg/dl (8.6-10.4); GFR NON-AFRICAN AMERICAN > 60
[2018-09-30] MEDS: Venlafaxine 150 mg ER Cap PO SCH (09:13)
--- NOTE | 2018-09-30 11:21 | CP.PCM.PN ---
Subjective - Date & Time of Evaluation Date of Evaluation: 09/30/18 Time of Evaluation: 11:30 Objective - Vital Signs/Intake and Output Vital Signs (last 24 hours): Temp Pulse Resp BP Pulse Ox 97.9 F 81 16 129/77 98 09/30/18 00:03 09/30/18 00:03 09/30/18 00:03 09/30/18 00:03 09/30/18 00:05 Intake and Output: 09/30/18 09/30/18 06:59 18:59 Intake Total 890 Balance 890 - Medications Medications: Current Medications Amlodipine Besylate (Norvasc) 10 mg PO DAILY [facility] Last Admin: 09/30/18 09:12 Dose: 10 mg Clonazepam (Klonopin) 0.5 mg PO Q12H [facility] Last Admin: 09/30/18 07:32 Dose: 0.5 mg Heparin Sodium (Porcine) (Heparin) 5,000 units SC Q12 [facility] Last Admin: 09/30/18 09:18 Dose: Not Given Ceftriaxone Sodium 1 gm/ (Sodium Chloride) 100 mls @ 100 mls/hr IVPB Q24H [facility]; Protocol Last Admin: 09/29/18 10:46 Dose: 100 mls/hr Sodium Chloride (Sodium Chloride 0.45%) 1,000 mls @ 80 mls/hr IV .[id number] [facility] Last Admin: 09/30/18 09:14 Dose: 80 mls/hr Ibuprofen (Motrin Tab) 600 mg PO TID [facility] Last Admin: 09/30/18 09:13 Dose: 600 mg Influenza Virus Vaccine (Fluzone Quad [id number]) 60 mcg IM .ONCE ONE Stop: 10/01/18 10:01 Rosuvastatin Calcium (Crestor) 5 mg PO HS [facility] Last Admin: 09/29/18 21:07 Dose: 5 mg Trazodone HCl (Desyrel) 300 mg PO HS [facility] Last Admin: 09/29/18 21:06 Dose: 300 mg Venlafaxine HCl (Effexor Xr) 150 mg PO DAILY [facility] Last Admin: 09/30/18 09:13 Dose: 150 mg - Labs Labs: 09/30/18 06:30 09/30/18 06:30 PT 12.5 SECONDS (9.7-12.2) H 09/28/18 12:08 INR 1.1 09/28/18 12:08 APTT 33 SECONDS (21-34) 09/28/18 12:08
--- NOTE | 2018-09-30 14:42 | CP.PCM.DIS ---
Provider - Provider Date of Admission: 09/28/18 12:35 Attending physician: Mariam Soares MD Time Spent in preparation of Discharge (in minutes): 36 Hospital Course - Lab Results Lab Results: Micro Results 09/28/18 11:44 Blood Blood Culture - Preliminary NO GROWTH AFTER 48 HOURS 09/28/18 11:06 Blood Blood Culture - Preliminary NO GROWTH AFTER 48 HOURS 09/28/18 13:54 Urine Urine Culture - Final No Growth (<1,000 CFU/ML) Most Recent Lab Values WBC 7.9 K/uL (4.8-10.8) 09/30/18 06:30 RBC 3.93 Mil/uL (3.80-5.20) 09/30/18 06:30 Hgb 10.0 g/dL (11.0-16.0) L 09/30/18 06:30 Hct 31.3 % (34.0-47.0) L 09/30/18 06:30 MCV 79.8 fL (81.0-99.0) L 09/30/18 06:30 MCH 25.5 pg (27.0-31.0) L 09/30/18 06:30 MCHC 32.0 g/dL (33.0-37.0) L 09/30/18 06:30 RDW 16.2 % (11.5-14.5) H 09/30/18 06:30 Plt Count 376 K/uL (130-400) 09/30/18 06:30 MPV 7.6 fL (7.2-11.7) 09/30/18 06:30 Neut % (Auto) 58.2 % (50.0-75.0) 09/30/18 06:30 Lymph % (Auto) 25.7 % (20.0-40.0) 09/30/18 06:30 [place] % (Auto) 8.9 % (0.0-10.0) 09/30/18 06:30 Eos % (Auto) 5.8 % (0.0-4.0) H 09/30/18 06:30 Baso % (Auto) 1.4 % (0.0-2.0) 09/30/18 06:30 Neut # (Auto) 4.6 K/uL (1.8-7.0) 09/30/18 06:30 Lymph # (Auto) 2.0 K/uL (1.0-4.3) 09/30/18 06:30 [place] # (Auto) 0.7 K/uL (0.0-0.8) 09/30/18 06:30 Eos # (Auto) 0.5 K/uL (0.0-0.7) 09/30/18 06:30 Baso # (Auto) 0.1 K/uL (0.0-0.2) 09/30/18 06:30 Neutrophils % (Manual) 83 % (50-75) H 09/28/18 11:06 Band Neutrophils % 4 % (0-2) H 09/28/18 11:06 Lymphocytes % (Manual) 8 % (20-40) L 09/28/18 11:06 Monocytes % (Manual) 5 % (0-10) 09/28/18 11:06 Platelet Estimate Normal (NORMAL) 09/28/18 11:06 Hypochromasia (manual) Slight 09/28/18 11:06 Anisocytosis (manual) Slight 09/28/18 11:06 PT 12.5 SECONDS (9.7-12.2) H 09/28/18 12:08 INR 1.1 09/28/18 12:08 APTT 33 SECONDS (21-34) 09/28/18 12:08 pO2 48 mm/Hg (30-55) 09/28/18 12:10 VBG pH 7.39 (7.32-7.43) 09/28/18 12:10 VBG pCO2 41 mmHg (40-60) 09/28/18 12:10 VBG HCO3 24.4 mmol/L 09/28/18 12:10 VBG Total CO2 26.1 mmol/L (22-28) 09/28/18 12:10 VBG O2 Sat (Calc) 85.8 % (40-65) H 09/28/18 12:10 VBG Base Excess -0.2 mmol/L (0.0-2.0) L 09/28/18 12:10 VBG Potassium 3.9 mmol/L (3.6-5.2) 09/28/18 12:10 Sodium 136.0 mmol/l (132-148) 09/28/18 12:10 Chloride 105.0 mmol/L (98-107) 09/28/18 12:10 Glucose 109 mg/dl (65-105) H 09/28/18 12:10 Lactate 0.9 mmol/L (0.7-2.1) 09/28/18 12:10 Sodium 141 mmol/L (132-148) 09/30/18 06:30 Potassium 4.4 mmol/L (3.6-5.2) 09/30/18 06:30 Chloride 107 mmol/L (98-107) 09/30/18 06:30 Carbon Dioxide 26 mmol/L (22-30) 09/30/18 06:30 Anion Gap 13 (10-20) 09/30/18 06:30 BUN 16 mg/dL (7-17) 09/30/18 06:30 Creatinine 0.8 mg/dL (0.7-1.2) 09/30/18 06:30 Est GFR ( Amer) > 60 09/30/18 06:30 Est GFR (Non-Af Amer) > 60 09/30/18 06:30 POC Glucose (mg/dL) 106 mg/dL (65-110) 09/29/18 21:41 Random Glucose 96 mg/dL (65-105) 09/30/18 06:30 Calcium 8.7 mg/dl (8.6-10.4) 09/30/18 06:30 Phosphorus 4.3 mg/dL (2.5-4.5) 09/28/18 14:08 Magnesium 1.7 mg/dL (1.6-2.3) 09/28/18 14:08 Total Bilirubin 0.3 mg/dL (0.2-1.3) 09/30/18 06:30 AST 51 U/L (14-36) H D 09/30/18 06:30 ALT 38 U/L (9-52) 09/30/18 06:30 Alkaline Phosphatase 98 U/L (38-126) 09/30/18 06:30 Total Protein 6.9 g/dL (6.3-8.3) 09/30/18 06:30 Albumin 3.9 g/dL (3.5-5.0) 09/30/18 06:30 Globulin 3.0 gm/dL (2.2-3.9) 09/30/18 06:30 Albumin/Globulin Ratio 1.3 (1.0-2.1) 09/30/18 06:30 Venous Blood Potassium 3.9 mmol/L (3.6-5.2) 09/28/18 12:10 Urine Color Straw (YELLOW) 09/28/18 13:54 Urine Clarity Clear (Clear) 09/28/18 13:54 Urine pH 6.0 (5.0-8.0) 09/28/18 13:54 Ur Specific [place] 1.004 (1.003-1.030) 09/28/18 13:54 Urine Protein Negative mg/dL (NEGATIVE) 09/28/18 13:54 Urine Glucose (UA) Normal mg/dL (Normal) 09/28/18 13:54 Urine Ketones Negative mg/dL (NEGATIVE) 09/28/18 13:54 Urine Blood Negative (NEGATIVE) 09/28/18 13:54 Urine Nitrate Negative (NEGATIVE) 09/28/18 13:54 Urine Bilirubin Negative (NEGATIVE) 09/28/18 13:54 Urine Urobilinogen Normal mg/dL (0.2-1.0) 09/28/18 13:54 Ur Leukocyte Esterase Neg Honey/uL (Negative) 09/28/18 13:54 Urine WBC (Auto) < 1 /hpf (0-5) 09/28/18 13:54 Influenza Typ A,B (EIA) Negative for flu a/b (NEGATIVE) 09/28/18 11:06 - Hospital Course Hospital Course: Patient is admitted from emergency room complaining of cough expectoration with evolving pneumonia. Patient for the last few days has been complaining of cough expectoration with upper respiratory congestion with loss of appetite. Patient was evaluated in the ER blood test shows WBC count of 19,000 and chest x-ray did not reveal any definite infiltrate. PAST HIST. History of hypertension and depression Patient was admitted on the floor. IV antibiotics and IV fluids were given with improvement of white cells count. Prior to discharge the white cell count was 7.9 thousand. CAT scan of the sinuses showed sinusitis. CT of the head was negative and the x-rays of the knee showed osteoarthritis patient improved on also on Motrin uric acids were normal Currently patient is discharged on Augmentin will be followed as an outpatient. Discharge Plan - Discharge Medications Prescriptions: Amoxicillin/Clavulanate [Augmentin 875 MG-125 MG] 1 tab PO Q12 #20 tab Lactobacillus Acidophilus [Bacid Acidophilus] 1 cap PO HS #10 cap - Follow Up Plan Condition: SERIOUS Disposition: HOME/ ROUTINE Instructions: Pneumonia, Adult (DC), Generalized Weakness (DC), Amoxicillin and Clavulanate, Lactobacillus, Weakness (ED) Additional Instructions: Please f/u with PMD in 1 week Please continue antibiotics for 10 days Please pick medication from [facility]
[2018-10-01] MEDS ORDERED: Influenza Vaccine 60 MCG/0.5 ML SYR (3 yr & up) IM ONE (10:00)
== END 2018-09-30 13:00 | disposition home or self-care (01) ==
LOC: C.ER 10:23 → C.3T 12:35
PROVIDERS: ADMIT Internal Medicine Cardiovascular Disease; ATTEND Internal Medicine Cardiovascular Disease
DX: J18.9 Pneumonia, unspecified organism (principal); I10 Essential (primary) hypertension; E11.9 Type 2 diabetes mellitus without complications; E78.00 Pure hypercholesterolemia, unspecified; M17.10 Unilateral primary osteoarthritis, unspecified knee; Z98.51 Tubal ligation status; Z23 Encounter for immunization; E78.5 Hyperlipidemia, unspecified
CPT/HCPCS: 36415; 70220; 71045; 73562; 80053; 81001; 82803; 82948; 83735; 84100; 85025; 85610; 85730; 87040; 87086; 87804; 93005; 97116; 97162; 97165; 97530; 99285; G0378; G8978; G8979; G8987; G8988; J0456; J0696; J1644; J1885; J7030; J7040

== ENCOUNTER 2019-04-11 08:45 | Emergency (ER) | payer MEDICARE ==
[2019-04-11 08:45] VITALS: BMI 29.2
[2019-04-11 08:56] VITALS: O2SAT 95
--- NOTE | 2019-04-11 09:30 | C.PDOC ---
History Of Present Illness 74 y/o female brought to ER by ambulance for evaluation of low back pain which has been present since yesterday.Patient states that she was wearing heels and she had slip and fall. Patient reports that she landed on her back.Denies having head injury,LOC, headache,dizziness, neck pain, CP,SOB, nausea, vomiting, and abdominal pain. Time Seen by Provider: 04/11/19 08:57 Chief Complaint (Nursing): Back Pain History Per: Patient History/Exam Limitations: no limitations Onset/Duration Of Symptoms: Days Current Symptoms Are (Timing): Still Present Severity: Moderate Past Medical History Reviewed: Historical Data, Nursing Documentation, Vital Signs Vital Signs: Last Vital Signs Temp 98.9 F 04/11/19 08:53 Pulse 79 04/11/19 08:53 Resp 20 04/11/19 08:53 BP 135/70 04/11/19 08:53 Pulse Ox 95 04/11/19 08:53 Primary Care Provider: FAMILY PROVIDER,NO - Medical History PMH: Anxiety, Back Problems, Depression, Diabetes, HTN, Hypercholesterolemia, Hyperlipidemia Denies: HIV, Seizures, Sexually Transmitted Disease Surgical History: Other Surgeries: Hx of surgeries - [facility] Procedures CLOSED BIOPSY OF SKIN AND SUBCUTANEOUS TISSUE (12/04/14) INJECT/INFUSE NEC (11/24/05) Family History: States: No Known Family Hx - Social History Hx Tobacco Use: No Hx Alcohol Use: No Hx Substance Use: No - Immunization History Hx Tetanus Toxoid Vaccination: No Hx Influenza Vaccination: No Hx Pneumococcal Vaccination: Yes Review Of Systems Except As Marked, All Systems Reviewed And Found Negative. Constitutional: Negative for: Fever, Chills Cardiovascular: Negative for: Chest Pain Respiratory: Negative for: Shortness of Breath Gastrointestinal: Negative for: Nausea, Vomiting Musculoskeletal: Positive for: Back Pain. Negative for: Neck Pain Physical Exam - Physical Exam Appears: Non-toxic, No Acute Distress, Other (comfortable) Skin: Normal Color, Warm, Dry Head: Atraumatic, Normacephalic Eye(s): bilateral: Normal Inspection Nose: Normal Oral Mucosa: Moist Neck: Supple Chest: Symmetrical Cardiovascular: Rhythm Regular Respiratory: Normal Breath Sounds, No Rales, No Rhonchi, No Wheezing Gastrointestinal/Abdominal: Normal Exam, Soft, No Tenderness, No Guarding, No Rebound Back: Other (lumbar tenderness( L1-L2)) Extremity: Normal ROM, Tenderness (sacral tenderness) Neurological/Psych: Oriented x3, Normal Speech, Normal Motor (legs), Normal Sensation (legs) ED Course And Treatment O2 Sat by Pulse Oximetry: 95 (RA) Pulse Ox Interpretation: Normal Progress Note: N-Cwt-Gutbpd Spine,I-Nwa-Buxhck and Coccyx,X-Ray-Hip/Pelvis, and CT-Pelvis ordered. Disposition Counseled Patient/Family Regarding: Studies Performed, Diagnosis, Need For Fol lowup, Rx Given - Disposition Referrals: [facility] [Outside] Nima Don MD [Staff Provider] - Disposition: HOME/ ROUTINE Disposition Time: 12:00 Condition: STABLE Additional Instructions: FOLLOW UP WITH YOUR DOCTOR/CLINIC IN 1-2 DAYS IF PAIN PERSISTS, FOLLOW UP WITH ORTHOPEDICS WITHIN 1 WEEK USE PAIN MEDICATIONS NEEDED RETURN TO ER IF SYMPTOMS WORSEN Prescriptions: Acetaminophen [Tylenol 325mg tab] 650 mg PO Q6 PRN #30 tab PRN Reason: pain/fever Ibuprofen [Motrin Tab] 600 mg PO Q6 PRN #30 tab PRN Reason: fever/pain Instructions: Low Back Pain (DC) Forms: Tagged (Danish) Print Language: LAO - Clinical Impression Clinical Impression: Lumbar back sprain, Contusion of back - Scribe Statement The provider has reviewed the documentation as recorded by the Judah Quintero Provider Attestation: All medical record entries made by the Catrachitaibjake were at my direction and personally dictated by me. I have reviewed the chart and agree that the record accurately reflects my personal performance of the history, physical exam, medical decision making, and the department course for this patient. I have also personally directed, reviewed, and agree with the discharge instructions and disposition.
--- NOTE | 2019-04-11 10:22 | RAD ---
PROCEDURE: Radiographs of the pelvis and bilateral hips HISTORY: HIP PAIN AFTER FALL COMPARISON: None. TECHNIQUE: 2 views obtained. FINDINGS: BONES: Pelvis: Deformity with fracture of the lateral aspect of the superior pubic ramus at the juncture with the acetabulum. The possibly acute versus chronic. There is fracture of the pubic symphysis with displacement of the superior pubic ramus relative to the symphysis. Again, possible acute versus old deformity. No other fracture identified. Right hip:Unremarkable. Left hip:Unremarkable. JOINTS: Right hip: Unremarkable. Left hip: Unremarkable. Sacroiliac Joints: Unremarkable. Pubic symphysis: As above. SOFT TISSUES: Normal. OTHER FINDINGS: None. IMPRESSION: Acute versus old fracture right superior pubic ramus laterally andAt the junction with the superior pubic ramus. Further evaluation with CT should be considered.
--- NOTE | 2019-04-11 10:23 | RAD ---
Date of service: 04/11/2019 PROCEDURE: Radiographs of the Sacrum and Coccyx HISTORY: low back/tailbone pain after fall COMPARISON: None available. TECHNIQUE: Frontal and lateral views of the sacrum and coccyx. 4 views obtained. FINDINGS: BONES: Sacrum and coccyx unremarkable. No fracture or focal lesion. SACROILIAC JOINTS: Unremarkable. OTHER FINDINGS: Acute versus old fracture right superior pubic ramus both laterally at the junction with the acetabulum and medially at the junction with the pubic symphysis. Mild displacement. Recommend evaluation with computed tomography. IMPRESSION: No fracture of sacrum or coccyx identified. See above discussion regarding pelvic fractures.
--- NOTE | 2019-04-11 11:34 | CT ---
Date of service: 04/11/2019 PROCEDURE: CT pelvis HISTORY: RIGHT PELVIC FRACTURE ACUTE VS CHRONIC COMPARISON: 12/03/2014 CT abdomen/pelvis TECHNIQUE: 2.5 mm contiguous axial sections were acquired through the pelvis. Sagittal and coronal images were reformatted from the axial scan. Contrast administered: None Total exam DLP: 661.98 mGy-cm This CT exam was performed using 1 or more of the following dose reduction techniques: Automated exposure control, adjustment of the mA and/or kV according to patient size, and/or use of iterative reconstruction technique. FINDINGS: There is no evidence of acute fracture. There is an old healed right iliac wing fracture. This extends to the entire vertical length of the iliac bone. There is an ununited old fracture of the lateral aspect of the right superior pubic ramus at the junction with the acetabulum. There are several small ununited fragments associated with this old fragment. There is an ununited fracture of the mid aspect of the right inferior pubic ramus. There is deformity and displacement associated with this old fracture. There are multiple small ununited fragments at the fracture site. All of the osseous structures involving this old fracture are well corticated. There is no other fracture identified. The hips appear intact. The femoral heads are smooth in contour. 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 There is no sacral fracture appreciated. IMPRESSION: No acute fracture. Multiple old fractures including right iliac wing and ununited fractures of the right superior and inferior pubic rami as described.
--- NOTE | 2019-04-11 11:44 | RAD ---
Date of service: 04/11/2019 PROCEDURE: Radiographs of the Lumbar Spine. HISTORY: low back pain after fall COMPARISON: 06/02/2016 TECHNIQUE: Three views obtained. FINDINGS: BONES: There is interval compression mild compression deformity of the superior L1 vertebral body oval change since 2016. A mild compression fracture here without gross retropulsion of ossific fragments is suggested. Loss of height is less than 25 percent. Elsewhere endplate spondylosis probably slightly increased at L3 and L2. DISC SPACES: Posterior L4-5 disc space narrowing noted. OTHER FINDINGS: Atherosclerotic vascular calcifications present. Bilateral sacroiliac mild sclerotic arthrosis-similar. Bilateral hip arthrosis-not assessable on the prior lumbar spine study. There is abnormal shape and mineralization over the right iliac bone compatible correlation with a same-day CT pelvic study is advised. There is also noted of the fairly well corticated fractures of the right ischium/pubic rim junction bony fragments chronicity here unclear. IMPRESSION: Interval L1 vertebral body fracture or loss of height less than 25 percent. Deformity right iliac bone-and deformity of right ischium/pubic bone osseous junction at minimal chronic fracture deformity here inferred. Acute on chronic pathology not excluded again correlation with same-day CT pelvis without contrast for further evaluation of both findings in the right hemipelvis. Comments: Study marked for PA review .
[2019-04-11 12:04] VITALS: BP 147/88; PULSE 76; RESP 16; TEMP 98.2
== END 2019-04-11 12:24 | disposition home or self-care (01) ==
LOC: C.ER 08:45
DX: S33.5XXA Sprain of ligaments of lumbar spine, initial encounter (principal); S30.0XXA Contusion of lower back and pelvis, initial encounter; W01.0XXA Fall on same level from slipping, tripping and stumbling without subsequent striking against object, initial encounter